=== PATIENT | female | born 1985 | race Caucasian/White ===

== ENCOUNTER 2022-03-20 12:48 | Emergency (ER) | payer OTHER, SELFPAY ==
--- NOTE | ~2022-03-20 | CT_ITS ---
EXAMINATION: CT ABDOMEN AND PELVIS WITHOUT CONTRAST CLINICAL INFORMATION: Left flank pain and dysuria COMPARISON: None TECHNIQUE: Multidetector volumetric imaging was performed from the superior aspect of the liver through the pubic symphysis. Sagittal and coronal reformatted images were obtained on the technologist's workstation. This CT examination was performed using dose optimization techniques as appropriate, variously including the following: *Automated exposure control *Adjustment of mA and/or kV according to patient size (this includes techniques or standardized protocols for targeted exams where dose is matched to indication/reason for exam; i.e. extremities or head) *Use of iterative reconstruction technique DLP: 866 mGy-cm FINDINGS: LUNG BASES: Normal. No pulmonary consolidation or pleural effusion. LIVER: The liver has normal size, shape, and attenuation. No evidence of liver mass. GALLBLADDER AND BILIARY TREE: Gallbladder is without radiopaque stones, wall thickening or pericholecystic fluid. No dilated bile ducts. PANCREAS: Normal. No edema, pancreatic ductal dilatation or mass. SPLEEN: Normal. ADRENAL GLANDS: Normal. KIDNEYS AND URETERS: Kidneys are normal in size. 0.2 cm and 0.4 cm calyceal stones of the mid left kidney. Mild left hydronephrosis and mild perinephric edema. However, there is no significant dilatation of the left ureter. BLADDER: 0.2 cm calcification of the left posterior bladder wall is in the expected region of the ureteral orifice. This is either protruding from the ureterovesical junction or represents a recently passed stone. BOWEL AND PERITONEUM: Stomach is unremarkable. No dilated loops of bowel. The appendix is normal. No overt bowel wall thickening or mesenteric fat stranding. No free fluid or pneumoperitoneum. ABDOMINAL WALL: Unremarkable. VASCULATURE: Normal. LYMPH NODES: No pathologic sized lymph nodes in the abdomen or pelvis. No inguinal lymphadenopathy. PELVIC VISCERA: Normal. No uterine or adnexal mass. No pelvic free fluid. MUSCULOSKELETAL: Moderate disc degenerative change of L4-5 and L5-S1. CT/CT abdomen pelvis wo IV con IMPRESSION: * Mild left hydronephrosis and perinephric edema secondary to a 0.2 cm stone of the left ureterovesical junction. * There are two small stones of the mid left kidney.
[2022-03-20 12:56] VITALS: BP 153/88; PULSE 83; RESP 19; TEMP 36.6; O2SAT 98; BMI 39.8
--- NOTE | 2022-03-20 12:58 | ED.ABDPAIN ---
HPI - Abdominal Pain General Chief Complaint: Urogenital-Female Stated Complaint: Kidney stone? Time Seen by Provider: 03/20/22 13:47 Related Data Previous Rx's Medication Instructions Recorded ibuprofen 800 mg tablet 800 mg PO Q6H PRN pain #30 tabs 03/20/22 nitrofurantoin 100 mg PO BID #10 caps 03/20/22 monohydrate/macrocrystals 100 mg capsule (Macrobid) oxycodone-acetaminophen 5 mg-325 1 tab PO TID PRN pain #7 tabs 03/20/22 mg tablet (Percocet) tamsulosin 0.4 mg capsule (Flomax) 0.4 mg PO DAILY #7 caps 03/20/22 Allergies Allergy/AdvReac Type Severity Reaction Status Date / Time No Known Allergies Allergy Verified 03/20/22 12:57 [facility] Social History Social History Smoked in Last 30 Days: No Advance Directives: No Advance Directives Information Provided: No Patient : No Physical Exam ED Vital Signs: Vital Signs - 24 hr 03/20/22 12:56 03/20/22 14:46 Temperature 98 F Pulse Rate 83 98 Respiratory Rate 19 16 Blood Pressure 153/88 H 126/71 Pulse Oximetry 98 98 Oxygen Delivery Method Room Air Room Air BMI result Body Mass Index 39.8 Course Course Course Narrative: LMP 13PM - 36yoF presenting to the ED c c/o of left flank pain since this morning c associated dysuria, urgency and frequency. Is on Control therefore doesn't have a menstrual period. Denies any fevers, N/V, hematuria, abnormal discharge other symptoms complaints or concerns at this time. Plan: Will obtain labs, UA, CT scan abdomen pelvis without IV contrast. Patient will be sent back to the waiting room to be evaluated in the ED. Medical Decision Making Lab Data 03/20/22 13:38 03/20/22 13:37 Labs: Lab Results 03/20/22 03/20/22 03/20/22 Range/Units 13:27 13:37 13:38 WBC 14.4 H (4.8-10.8) X10*3/uL RBC 4.01 L (4.20-5.50) X10*6/uL Hgb 12.3 (12.0-16.0) g/dl Hct 36.7 L (37.0-47.0) % MCV 91.5 (80.0-98.0) fL MCH 30.7 (27.0-33.0) pg MCHC 33.5 (31.0-35.0) g/dl RDW 12.8 (11.0-16.0) % Plt Count 259 (160-400) X10*3/uL MPV 10.5 (9.4-12.3) fL Immature Gran % (Auto) 0.3 (0.0-0.4) % Neut % (Auto) 88.9 H (45-73) % Lymph % (Auto) 7.8 L (20-40) % [place] % (Auto) 2.6 (2-11) % Eos % (Auto) 0.1 (0-4) % Baso % (Auto) 0.3 (0-2) % Lymph # (Auto) 1.1 L (1.2-4.9) X10*3/uL [place] # (Auto) 0.4 (0.1-1.2) X10*3/uL Eos # (Auto) 0.0 (0.0-0.4) X10*3/uL Baso # (Auto) 0.0 (0.0-0.2) X10*3/uL Abs Immat Gran (auto) 0.05 H (0.00-0.03) X10*3/uL Absolute Neuts (auto) 12.7 H (2.0-8.3) x10*3/uL Absolute Nucleated RBC 0.000 (0.0-0.012) X10*3/uL Nucleated RBC % (auto) 0.0 (0.0-0.2) /100WBC PT (10.0-13.1) SEC INR (0.9-1.1) Sodium 136 (135-145) mmol/L Potassium 4.6 (3.3-5.1) mmol/L Chloride 103 (96-108) mmol/L Carbon Dioxide 24 (22-29) mmol/L Anion Gap 14 (12-20) BUN 14 (9-16) mg/dL Creatinine 1.00 (0.5-1.4) mg/dL Estim Creat Clear Calc 87.8 Estimated GFR > 60 Random Glucose 113 (60-115) mg/dL Calcium 9.5 (8.4-10.2) mg/dL Magnesium 1.9 (1.6-2.6) mg/dL Total Bilirubin 0.5 (0.0-1.0) mg/dL AST 17 (5-31) U/L ALT 17 (0-31) U/L Alkaline Phosphatase 56 (39-117) U/L Total Protein 7.3 (6.5-8.0) g/dL Albumin 4.4 (3.5-5.0) g/dL Lipase 14 (8-78) U/L Beta HCG, Quant < 2 mIU/mL Urine Color Yellow Urine Appearance Cloudy Urine pH 6.0 (5.0-9.0) Ur Specific [place] >= 1.030 H (1.005-1.025) Urine Protein 30 (1+) H (Neg-Trace) mg/dL Urine Glucose (UA) Negative (Negative) mg/dL Urine Ketones Negative (Negative) mg/dL Urine Blood Large (3+) H (Negative) Urine Nitrite Negative (Negative) Ur Leukocyte Esterase Negative (Negative) Urine RBC >20 H (0-2) /HPF Urine WBC 11-20 H (0-5) /HPF Ur Squamous Epith Cells 11-20 (0-2) /HPF Other Crystals Present Urine Bacteria 1+ (None Seen) Hyaline Casts 3-5 (0-2) /LPF 03/20/22 Range/Units 13:38 WBC (4.8-10.8) X10*3/uL RBC (4.20-5.50) X10*6/uL Hgb (12.0-16.0) g/dl Hct (37.0-47.0) % MCV (80.0-98.0) fL MCH (27.0-33.0) pg MCHC (31.0-35.0) g/dl RDW (11.0-16.0) % Plt Count (160-400) X10*3/uL MPV (9.4-12.3) fL Immature Gran % (Auto) (0.0-0.4) % Neut % (Auto) (45-73) % Lymph % (Auto) (20-40) % [place] % (Auto) (2-11) % Eos % (Auto) (0-4) % Baso % (Auto) (0-2) % Lymph # (Auto) (1.2-4.9) X10*3/uL [place] # (Auto) (0.1-1.2) X10*3/uL Eos # (Auto) (0.0-0.4) X10*3/uL Baso # (Auto) (0.0-0.2) X10*3/uL Abs Immat Gran (auto) (0.00-0.03) X10*3/uL Absolute Neuts (auto) (2.0-8.3) x10*3/uL Absolute Nucleated RBC (0.0-0.012) X10*3/uL Nucleated RBC % (auto) (0.0-0.2) /100WBC PT 11.6 (10.0-13.1) SEC INR 1.0 (0.9-1.1) Sodium (135-145) mmol/L Potassium (3.3-5.1) mmol/L Chloride (96-108) mmol/L Carbon Dioxide (22-29) mmol/L Anion Gap (12-20) BUN (9-16) mg/dL Creatinine (0.5-1.4) mg/dL Estim Creat Clear Calc Estimated GFR Random Glucose (60-115) mg/dL Calcium (8.4-10.2) mg/dL Magnesium (1.6-2.6) mg/dL Total Bilirubin (0.0-1.0) mg/dL AST (5-31) U/L ALT (0-31) U/L Alkaline Phosphatase (39-117) U/L Total Protein (6.5-8.0) g/dL Albumin (3.5-5.0) g/dL Lipase (8-78) U/L Beta HCG, Quant mIU/mL Urine Color Urine Appearance Urine pH (5.0-9.0) Ur Specific [place] (1.005-1.025) Urine Protein (Neg-Trace) mg/dL Urine Glucose (UA) (Negative) mg/dL Urine Ketones (Negative) mg/dL Urine Blood (Negative) Urine Nitrite (Negative) Ur Leukocyte Esterase (Negative) Urine RBC (0-2) /HPF Urine WBC (0-5) /HPF Ur Squamous Epith Cells (0-2) /HPF Other Crystals Urine Bacteria (None Seen) Hyaline Casts (0-2) /LPF Medications Administered Discontinued Medications Generic Name Dose Route Start Last Admin Trade Name Freq PRN Reason Stop Dose Admin Sodium Chloride 1,000 mls @ 999 mls/hr 03/20/22 14:15 03/20/22 15:18 Ns IV 03/20/22 15:15 Infused .Q1H1M ROHAN Infusion Ketorolac Tromethamine 30 mg 03/20/22 14:01 03/20/22 14:16 Ketorolac Tromethamine 15 Mg/Ml Vial IVPUSH 03/20/22 14:02 30 mg ONCE ONE Administration Nitrofurantoin Macrocrystals 100 mg 03/20/22 16:40 03/20/22 16:50 Nitrofurantoin Monohyd/M-Cryst 100 Mg Capsule PO 03/20/22 16:41 100 mg ONCE ONE Administration Ondansetron HCl 4 mg 03/20/22 14:01 03/20/22 14:16 Ondansetron Hcl 4 Mg/2 Ml Vial IVPUSH 03/20/22 14:02 4 mg ONCE ONE Administration Oxycodone HCl 5 mg 03/20/22 16:40 03/20/22 16:50 Oxycodone Hcl Immed Release 5 Mg Tablet PO 03/20/22 16:41 5 mg ONCE ONE Administration Tamsulosin HCl 0.4 mg 03/20/22 16:40 03/20/22 16:50 Tamsulosin Hcl 0.4 Mg Capsule PO 03/20/22 16:41 0.4 mg ONCE ONE Administration Discharge Plan Discharge Clinical Impression: Urinary tract infection, Kidney stone Patient Disposition: Home, Self-Care Instructions: Kidney Stones (ED), Urinary Tract Infection in Women (ED) Prescriptions: New nitrofurantoin monohyd/m-cryst [Macrobid] 100 mg capsule 100 mg PO BID Qty: 10 0RF Rx Instructions: must administer with a meal/food ibuprofen 800 mg tablet 800 mg PO Q6H PRN (Reason: pain) Qty: 30 0RF tamsulosin [Flomax] 0.4 mg capsule 0.4 mg PO DAILY Qty: 7 0RF oxycodone-acetaminophen [Percocet] 5-325 mg tablet 1 tab PO TID PRN (Reason: pain) Qty: 7 0RF Rx Instructions: Partial Fill upon patient request. Interventions: ED Discharge Assessment Last Done: 03/20/22 16:58 Discharge Date/Time: 03/20/22 17:00
[2022-03-20 13:44] LABS: MANUAL DIFF FLAG NO
[2022-03-20 13:48] LABS: Appearance Urine Cloudy; Color Urine Yellow; Glucose Urine UA Negative (Negative); Leukocyte Esterase Urine Negative (Negative); Nitrite Urine Negative (Negative); Specific Gravity - Urine >= 1.030 (1.005-1.025); UMIC TRIGGER UACC YES; Urine Blood Large (3+) (Negative); Urine Ketones Negative (Negative); Urine Protein 30 (1+) mg/dL (Neg-Trace)
[2022-03-20 13:55] LABS: Basophils Percent Auto 0.3 % (0-2); Eosinophils Percent Auto 0.1 % (0-4); Hematocrit 36.7 % (37.0-47.0); Hemoglobin 12.3 g/dl (12.0-16.0); Imm Gran Abs Auto 0.05 X10*3/uL (0.00-0.03); Imm Gran Pct Auto 0.3 % (0.0-0.4); Lymphocytes Absolute Auto 1.1 X10*3/uL (1.2-4.9); Lymphocytes Percent Auto 7.8 % (20-40); Mean Corpuscular HGB Conc 33.5 g/dl (31.0-35.0); Mean Corpuscular Hemoglobin 30.7 pg (27.0-33.0); Mean Corpuscular Volume 91.5 fL (80.0-98.0); Mean Platelet Volume 10.5 fL (9.4-12.3); Monocytes Absolute Auto 0.4 X10*3/uL (0.1-1.2); Monocytes Percent Auto 2.6 % (2-11); Neutrophils Absolute Auto 12.7 x10*3/uL (2.0-8.3); Neutrophils Percent Auto 88.9 % (45-73); Platelet Count 259 X10*3/uL (160-400); Red Blood Count 4.01 X10*6/uL (4.20-5.50); Red Cell Distribution Width 12.8 % (11.0-16.0); White Blood Count 14.4 X10*3/uL (4.8-10.8)
[2022-03-20 13:57] LABS: Bacteria Urine 1+ (None Seen); Other Crystals Urine Present; RBC Urine >20 /HPF (0-2); UACC Culture Trigger YES
[2022-03-20 13:59] LABS: Prothrombin Time 11.6 SEC (10.0-13.1)
--- NOTE | 2022-03-20 14:02 | ED_ITS ---
HPI - Abdominal Pain General Chief Complaint: Urogenital-Female Stated Complaint: Kidney stone? Time Seen by Provider: 03/20/22 13:47 Source: patient and old records reviewed History of Present Illness HPI narrative: Patient complaining of left-sided abdominal pain which started this morning when she woke up. Note is left flank radiating down into her left lower abdomen. It is similar to a prior episode of a kidney stone she had in 2009. She states that 1 was scheduled for procedure to have removed but she eventually passed it on her own. Positive nausea without vomiting No diarrhea or constipation Positive urinary frequency and hesitancy. No hematuria. She was well yesterday without any symptoms. No recent changes to diet exercise medications or activity Pain at its worst was 8/10. Currently 07/10. Related Data Previous Rx's Medication Instructions Recorded ibuprofen 800 mg tablet 800 mg PO Q6H PRN pain #30 tabs 03/20/22 nitrofurantoin 100 mg PO BID #10 caps 03/20/22 monohydrate/macrocrystals 100 mg capsule (Macrobid) oxycodone-acetaminophen 5 mg-325 1 tab PO TID PRN pain #7 tabs 03/20/22 mg tablet (Percocet) tamsulosin 0.4 mg capsule (Flomax) 0.4 mg PO DAILY #7 caps 03/20/22 Allergies Allergy/AdvReac Type Severity Reaction Status Date / Time No Known Allergies Allergy Verified 03/20/22 12:57 Review of Systems Comments: No fevers or chills Comments: No chest pain Comments: No dyspnea Comments: Abdominal pain is described Comments: No midline back pain. No extremity pain Comments: No rash Comments: No focal weakness PMFSH Social History Social History Smoked in Last 30 Days: No Advance Directives: No Advance Directives Information Provided: No Patient : No Physical Exam ED Vital Signs: Vital Signs - 24 hr 03/20/22 12:56 03/20/22 14:46 Temperature 98 F Pulse Rate 83 98 Respiratory Rate 19 16 Blood Pressure 153/88 H 126/71 Pulse Oximetry 98 98 Oxygen Delivery Method Room Air Room Air BMI result Body Mass Index 39.8 Const Other: Awake alert. No acute distress Resp Other: Clear and equal bilaterally without wheezes rales or rhonchi Cardio Other: Regular rate and rhythm without murmurs rubs or gallops GI Other: Soft. Mild left abdominal tenderness without guarding or rebound. Positive left flank tenderness to percussion. Back/Spine/Pelvis Other: No midline spine tenderness. Mild left flank tenderness to percussion Skin Other: Warm pink and dry without rash Neuro Other: Neurologically intact Extrem Other: No extremity abnormalities Medical Decision Making Medical Decision Making MDM Narrative: Patient with flank pain radiating to left lower abdomen consistent with prior kidney stones. Differential diagnosis would include kidney stone, pyelonephritis, musculoskeletal pain, other intra-abdominal mass. Diverticulitis less likely but possible. Will order CT scan. IV normal saline IV Toradol IV Zofran 14:07. Workup in the emergency department shows white count 66830. Chemistries are pending at this time. Urinalysis shows large blood and 11-20 white cells. 1+ bacteria. Await remainder of workup 16:27. CT scan on my evaluation shows a left-sided UVJ renal calculus with hydronephrosis, moderate. Await Radiology reading. 16:41. CT scan confirmed by Radiology to show left-sided UVJ renal calculus with hydronephrosis, moderate. Given urinalysis results, will start on Macrobid as well. Flomax for kidney stone. Urology follow-up. Percocet for severe pain. Ibuprofen for moderate pain Lab Data 03/20/22 13:38 03/20/22 13:37 Labs: Lab Results 03/20/22 03/20/22 03/20/22 Range/Units 13:27 13:37 13:38 WBC 14.4 H (4.8-10.8) X10*3/uL RBC 4.01 L (4.20-5.50) X10*6/uL Hgb 12.3 (12.0-16.0) g/dl Hct 36.7 L (37.0-47.0) % MCV 91.5 (80.0-98.0) fL MCH 30.7 (27.0-33.0) pg MCHC 33.5 (31.0-35.0) g/dl RDW 12.8 (11.0-16.0) % Plt Count 259 (160-400) X10*3/uL MPV 10.5 (9.4-12.3) fL Immature Gran % (Auto) 0.3 (0.0-0.4) % Neut % (Auto) 88.9 H (45-73) % Lymph % (Auto) 7.8 L (20-40) % [place] % (Auto) 2.6 (2-11) % Eos % (Auto) 0.1 (0-4) % Baso % (Auto) 0.3 (0-2) % Lymph # (Auto) 1.1 L (1.2-4.9) X10*3/uL [place] # (Auto) 0.4 (0.1-1.2) X10*3/uL Eos # (Auto) 0.0 (0.0-0.4) X10*3/uL Baso # (Auto) 0.0 (0.0-0.2) X10*3/uL Abs Immat Gran (auto) 0.05 H (0.00-0.03) X10*3/uL Absolute Neuts (auto) 12.7 H (2.0-8.3) x10*3/uL Absolute Nucleated RBC 0.000 (0.0-0.012) X10*3/uL Nucleated RBC % (auto) 0.0 (0.0-0.2) /100WBC PT (10.0-13.1) SEC INR (0.9-1.1) Sodium 136 (135-145) mmol/L Potassium 4.6 (3.3-5.1) mmol/L Chloride 103 (96-108) mmol/L Carbon Dioxide 24 (22-29) mmol/L Anion Gap 14 (12-20) BUN 14 (9-16) mg/dL Creatinine 1.00 (0.5-1.4) mg/dL Estim Creat Clear Calc 87.8 Estimated GFR > 60 Random Glucose 113 (60-115) mg/dL Calcium 9.5 (8.4-10.2) mg/dL Magnesium 1.9 (1.6-2.6) mg/dL Total Bilirubin 0.5 (0.0-1.0) mg/dL AST 17 (5-31) U/L ALT 17 (0-31) U/L Alkaline Phosphatase 56 (39-117) U/L Total Protein 7.3 (6.5-8.0) g/dL Albumin 4.4 (3.5-5.0) g/dL Lipase 14 (8-78) U/L Beta HCG, Quant < 2 mIU/mL Urine Color Yellow Urine Appearance Cloudy Urine pH 6.0 (5.0-9.0) Ur Specific [place] >= 1.030 H (1.005-1.025) Urine Protein 30 (1+) H (Neg-Trace) mg/dL Urine Glucose (UA) Negative (Negative) mg/dL Urine Ketones Negative (Negative) mg/dL Urine Blood Large (3+) H (Negative) Urine Nitrite Negative (Negative) Ur Leukocyte Esterase Negative (Negative) Urine RBC >20 H (0-2) /HPF Urine WBC 11-20 H (0-5) /HPF Ur Squamous Epith Cells 11-20 (0-2) /HPF Other Crystals Present Urine Bacteria 1+ (None Seen) Hyaline Casts 3-5 (0-2) /LPF 03/20/22 Range/Units 13:38 WBC (4.8-10.8) X10*3/uL RBC (4.20-5.50) X10*6/uL Hgb (12.0-16.0) g/dl Hct (37.0-47.0) % MCV (80.0-98.0) fL MCH (27.0-33.0) pg MCHC (31.0-35.0) g/dl RDW (11.0-16.0) % Plt Count (160-400) X10*3/uL MPV (9.4-12.3) fL Immature Gran % (Auto) (0.0-0.4) % Neut % (Auto) (45-73) % Lymph % (Auto) (20-40) % [place] % (Auto) (2-11) % Eos % (Auto) (0-4) % Baso % (Auto) (0-2) % Lymph # (Auto) (1.2-4.9) X10*3/uL [place] # (Auto) (0.1-1.2) X10*3/uL Eos # (Auto) (0.0-0.4) X10*3/uL Baso # (Auto) (0.0-0.2) X10*3/uL Abs Immat Gran (auto) (0.00-0.03) X10*3/uL Absolute Neuts (auto) (2.0-8.3) x10*3/uL Absolute Nucleated RBC (0.0-0.012) X10*3/uL Nucleated RBC % (auto) (0.0-0.2) /100WBC PT 11.6 (10.0-13.1) SEC INR 1.0 (0.9-1.1) Sodium (135-145) mmol/L Potassium (3.3-5.1) mmol/L Chloride (96-108) mmol/L Carbon Dioxide (22-29) mmol/L Anion Gap (12-20) BUN (9-16) mg/dL Creatinine (0.5-1.4) mg/dL Estim Creat Clear Calc Estimated GFR Random Glucose (60-115) mg/dL Calcium (8.4-10.2) mg/dL Magnesium (1.6-2.6) mg/dL Total Bilirubin (0.0-1.0) mg/dL AST (5-31) U/L ALT (0-31) U/L Alkaline Phosphatase (39-117) U/L Total Protein (6.5-8.0) g/dL Albumin (3.5-5.0) g/dL Lipase (8-78) U/L Beta HCG, Quant mIU/mL Urine Color Urine Appearance Urine pH (5.0-9.0) Ur Specific [place] (1.005-1.025) Urine Protein (Neg-Trace) mg/dL Urine Glucose (UA) (Negative) mg/dL Urine Ketones (Negative) mg/dL Urine Blood (Negative) Urine Nitrite (Negative) Ur Leukocyte Esterase (Negative) Urine RBC (0-2) /HPF Urine WBC (0-5) /HPF Ur Squamous Epith Cells (0-2) /HPF Other Crystals Urine Bacteria (None Seen) Hyaline Casts (0-2) /LPF Medications Administered Discontinued Medications Generic Name Dose Route Start Last Admin Trade Name Freq PRN Reason Stop Dose Admin Sodium Chloride 1,000 mls @ 999 mls/hr 03/20/22 14:15 03/20/22 15:18 Ns IV 03/20/22 15:15 Infused .Q1H1M ROHAN Infusion Ketorolac Tromethamine 30 mg 03/20/22 14:01 03/20/22 14:16 Ketorolac Tromethamine 15 Mg/Ml Vial IVPUSH 03/20/22 14:02 30 mg ONCE ONE Administration Ondansetron HCl 4 mg 03/20/22 14:01 03/20/22 14:16 Ondansetron Hcl 4 Mg/2 Ml Vial IVPUSH 03/20/22 14:02 4 mg ONCE ONE Administration Discharge Plan Discharge Clinical Impression: Urinary tract infection, Kidney stone Patient Disposition: Home, Self-Care Instructions: Kidney Stones (ED), Urinary Tract Infection in Women (ED) Prescriptions: New nitrofurantoin monohyd/m-cryst [Macrobid] 100 mg capsule 100 mg PO BID Qty: 10 0RF Rx Instructions: must administer with a meal/food ibuprofen 800 mg tablet 800 mg PO Q6H PRN (Reason: pain) Qty: 30 0RF tamsulosin [Flomax] 0.4 mg capsule 0.4 mg PO DAILY Qty: 7 0RF oxycodone-acetaminophen [Percocet] 5-325 mg tablet 1 tab PO TID PRN (Reason: pain) Qty: 7 0RF Rx Instructions: Partial Fill upon patient request.
[2022-03-20 14:16] LABS: Alanine Aminotransferase 17 U/L (0-31); Albumin Level 4.4 g/dL (3.5-5.0); Alkaline Phosphatase 56 U/L (39-117); Anion Gap 14 (12-20); Aspartate Amino Transferase 17 U/L (5-31); Bilirubin Total 0.5 mg/dL (0.0-1.0); Blood Urea Nitrogen 14 mg/dL (9-16); Calcium 9.5 mg/dL (8.4-10.2); Carbon Dioxide 24 mmol/L (22-29); Chloride 103 mmol/L (96-108); Creatinine Clr Calc Pharmacy 87.8; Estimated Glomerular Filt Rate > 60; Glucose Random 113 mg/dL (60-115); Lipase 14 U/L (8-78); Magnesium 1.9 mg/dL (1.6-2.6); Potassium 4.6 mmol/L (3.3-5.1); Sodium 136 mmol/L (135-145); Total Protein 7.3 g/dL (6.5-8.0)
[2022-03-20] MEDS: Ketorolac Tromethamine 15 MG/ML VIAL 30 MG IVPUSH (14:16)
[2022-03-20] MEDS: ondansetron HCL 4 MG/2 ML VIAL IVPUSH (14:16)
[2022-03-20] MEDS: 0.9 % Sodium Chloride 1,000 ML 999 ML IV (14:17)
[2022-03-20 14:22] LABS: HCG Quantitative < 2 mIU/mL
[2022-03-20 14:46] VITALS: BP 126/71; PULSE 98; RESP 16; O2SAT 98
[2022-03-20] MEDS: Nitrofurantoin Monohyd/M-Cryst 100 MG CAPSULE PO (16:50)
[2022-03-20] MEDS: Tamsulosin HCL 0.4 MG CAPSULE PO (16:50)
[2022-03-20] MEDS: oxyCODONE HCl Immed Release 5 MG TABLET PO (16:50)
== END 2022-03-20 17:00 | disposition home or self-care (01) ==
PROVIDERS: Physician Assistant Medical; Emergency Provider Emergency Medicine; PCP Internal Medicine Hematology & Oncology
DX: N39.0 Urinary tract infection, site not specified (principal); N13.2 Hydronephrosis with renal and ureteral calculous obstruction; R10.9 Unspecified abdominal pain; R10.32 Left lower quadrant pain
CPT/HCPCS: 36415; 74176; 80053; 81001; 83690; 83735; 84702; 85025; 85610; 87086; 96361; 96374; 96375; 99284; 99285; J1885; J2405

== ENCOUNTER 2022-10-29 12:55 | Emergency (ER) | payer OTHER, SELFPAY ==
--- NOTE | ~2022-10-29 | CT_ITS ---
EXAMINATION: CT ABDOMEN AND PELVIS WITHOUT CONTRAST CLINICAL INFORMATION: Left flank pain COMPARISON: CT abdomen and pelvis 03/20/2022 TECHNIQUE: Multidetector volumetric imaging was performed from the superior aspect of the liver through the pubic symphysis. Sagittal and coronal reformatted images were obtained on the technologist's workstation. This CT examination was performed using dose optimization techniques as appropriate, variously including the following: *Automated exposure control *Adjustment of mA and/or kV according to patient size (this includes techniques or standardized protocols for targeted exams where dose is matched to indication/reason for exam; i.e. extremities or head) *Use of iterative reconstruction technique DLP: 633 mGy-cm FINDINGS: LUNG BASES: The visualized lung bases are unremarkable. LIVER, GALLBLADDER, AND BILIARY TREE: The liver is normal in size, shape, and attenuation. No focal hepatic lesion or biliary ductal dilatation is present. The gallbladder is unremarkable with no evidence of radiopaque gallstones, gallbladder wall thickening, or obvious pericholecystic inflammatory changes. PANCREAS: Unremarkable. SPLEEN: Unremarkable. ADRENAL GLANDS: Unremarkable. KIDNEYS AND URETERS: The kidneys are normal in size, shape, and attenuation. There are 2 mm radiopaque two calculi in midpole left kidney and 2 mm radiopaque calculi in mid and lower pole right kidney. A 4 mm radiopaque obstructive calculi seen in left distal ureter with mild hydroureteronephrosis. It is best visualized on axial image 76/3. There is a phlebolith in the left adnexa. There is no right-sided hydronephrosis BLADDER: Unremarkable. GASTROINTESTINAL TRACT: There is scattered stool and gas in colon without distention. The small bowel loops are normal caliber. Appendix is normal caliber. ABDOMINAL WALL: No significant hernia is appreciated. LYMPH NODES: There is 8 mm lymph node in the right medial cecal mesentery and small shotty lymph nodes in the retroperitoneum, nonspecific. VASCULAR: Unremarkable. PELVIC VISCERA: Uterus is anteverted and unremarkable. No free fluid seen. No abnormal pelvic lymph nodes. OSSEOUS STRUCTURES: There are mild degenerative disc changes at L4-L5 and L5-S1 disc levels. CT/CT abdomen pelvis wo IV con IMPRESSION: Bilateral nephrolithiasis. 4 mm obstructive radiopaque stone distal left ureter. With mild hydroureter and hydronephrosis Fleischner guidelines were followed.
--- NOTE | 2022-10-29 13:05 | ED_ITS ---
HPI - General Adult General Chief complaint: Abdominal Pain Stated complaint: Lower L abd pain Time Seen by Provider: 10/29/22 13:54 Source: patient Mode of arrival: ambulatory History of Present Illness HPI narrative: 37-year-old female with a history of renal colic presents with onset left flank pain that started this more with associated nausea and chills but denies any vomiting or fevers. She reports corresponding dysuria. Related Data Previous Rx's Medication Instructions Recorded ibuprofen 800 mg tablet 800 mg PO Q6H PRN pain #30 tabs 03/20/22 nitrofurantoin 100 mg PO BID #10 caps 03/20/22 monohydrate/macrocrystals 100 mg capsule (Macrobid) oxycodone-acetaminophen 5 mg-325 1 tab PO TID PRN pain #7 tabs 03/20/22 mg tablet (Percocet) tamsulosin 0.4 mg capsule (Flomax) 0.4 mg PO DAILY #7 caps 03/20/22 ketorolac 10 mg tablet 10 mg PO Q6H PRN pain 5 days #20 10/29/22 tabs prednisone 20 mg tablet 20 mg PO DAILY #4 tabs 10/29/22 tamsulosin 0.4 mg capsule 0.4 mg PO BEDTIME #4 caps 10/29/22 Allergies Allergy/AdvReac Type Severity Reaction Status Date / Time No Known Allergies Allergy Verified 03/20/22 12:57 Review of Systems Review of Systems: Pertinent positives and negatives as stated in [facility] Past Medical History Source: nursing notes reviewed Social History Social History Advance Directives: No Advance Directives Information Provided: No Patient : No Physical Exam ED Vital Signs: Vital Signs - 24 hr 10/29/22 13:06 10/29/22 15:15 Temperature 98.0 F Pulse Rate 78 77 Respiratory Rate 20 16 Blood Pressure 136/82 116/67 Pulse Oximetry 100 100 Oxygen Delivery Method Room Air Room Air BMI result Body Mass Index 32.6 VITAL SIGNS: Reviewed. GENERAL: Well developed, well nourished, in moderate distress. HEAD: Normocephalic/atraumatic EYES: PERRLA, EOMI EARS: Ext canals without abnormality NOSE: Nares patent bilateral OROPHARYNX: no oral lesions noted, posterior pharynx clear NECK: Supple, no adenopathy LUNGS: Normal breath sounds. No adventitious sounds or accessory muscle use. SpO2<100> CARDIOVASCULAR: Regular rate and rhythm without noted murmurs ABDOMEN: Soft, non-tender, non-distended with bowel sounds, no CVA tenderness. MUSCULOSKELETAL: No tenderness, deformities, or effusions noted on gross inspection. EXTREMITIES: No cyanosis, clubbing or edema. SKIN: Inspection of the skin reveals no rashes NEUROLOGIC: Alert and oriented x 4. Strength and sensation to light touch were grossly intact x 4. Course Course Course Narrative: This is a rapid medical exam: Additional HPI, ROS, PE not included below will be deferred to primary provider. Patient is a 37-year-old female with history of kidney stones, endometriosis presenting to the emergency department with complaint of left lower quadrant abdominal pain since 10 am today. States pain was bearable initially, has worsened since. Currently 6/10. Reports urinary urgency, but only going small amounts, left flank pain. Also complains of hot flashes. Plan: UA, labs Medications Administered Discontinued Medications Generic Name Dose Route Start Last Admin Trade Name Freq PRN Reason Stop Dose Admin Sodium Chloride 1,000 mls @ 999 mls/hr 10/29/22 14:15 10/29/22 14:25 Ns IV 10/29/22 15:15 999 mls/hr .Q1H1M ROHAN Administration Ketorolac Tromethamine 15 mg 10/29/22 14:12 10/29/22 14:25 Ketorolac Tromethamine 30 Mg/Ml Vial IVPUSH 10/29/22 14:13 15 mg ONCE ONE Administration Ondansetron HCl 4 mg 10/29/22 14:27 10/29/22 14:30 Ondansetron Hcl 4 Mg/2 Ml Vial IVPUSH 10/29/22 14:28 4 mg ONCE ONE Administration Medical Decision Making Medical Decision Making MDM Narrative: 37-year-old female with history and clinical presentation, DDX: Renal colic, pyelonephritis, UTI, low clinical suspicion for ectopic/diverticulitis. IV fluids, labs, Zofran, ketorolac I reviewed all investigations, hematologic indices to not demonstrate any leukocytosis but there is a mild left shift likely stress-induced otherwise no anemia or thrombocytopenia. Chemistry indices negative for CHEKO or electrolytes/liver enzyme abnormalities, beta hCG is undetectable. CT scan demonstrates a distal stone with mild hydro and otherwise my interpretation is in agreement with radiology's impression. There is no corresponding finding leukocytosis or CHEKO and if patient's pain is well controlled will discharge home with follow-up to Urology. 1543: On re-evaluation patient reports that her pain has improved, she is no longer nauseous and she will follow-up at the [facility]. She understands she will go home with the requisite kidney stone cocktail and she is otherwise hemodynamically stable for discharge. Differential Diagnosis Differential Diagnoses: The differential diagnosis associated with the presentation includes Please see the discussion above Admission/Observation Consideration of admission/observation: Escalation of care including admission/observation considered Please see the discussion above Lab Data MDM Lab Attestation statement: I reviewed the patient's lab results. Please see the discussion above 10/29/22 14:19 10/29/22 14:19 Labs: Lab Results 10/29/22 10/29/22 10/29/22 Range/Units 14:19 14:19 14:20 WBC 10.4 (4.8-10.8) X10*3/uL RBC 4.10 L (4.20-5.50) X10*6/uL Hgb 12.5 (12.0-16.0) g/dl Hct 37.8 (37.0-47.0) % MCV 92.2 (80.0-98.0) fL MCH 30.5 (27.0-33.0) pg MCHC 33.1 (31.0-35.0) g/dl RDW 12.5 (11.0-16.0) % Plt Count 215 (160-400) X10*3/uL MPV 11.7 (9.4-12.3) fL Immature Gran % (Auto) 0.5 H (0.0-0.4) % Neut % (Auto) 78.9 H (45-73) % Lymph % (Auto) 14.9 L (20-40) % [place] % (Auto) 3.9 (2-11) % Eos % (Auto) 1.3 (0-4) % Baso % (Auto) 0.5 (0-2) % Lymph # (Auto) 1.5 (1.2-4.9) X10*3/uL [place] # (Auto) 0.4 (0.1-1.2) X10*3/uL Eos # (Auto) 0.1 (0.0-0.4) X10*3/uL Baso # (Auto) 0.1 (0.0-0.2) X10*3/uL Abs Immat Gran (auto) 0.05 H (0.00-0.03) X10*3/uL Absolute Neuts (auto) 8.2 (2.0-8.3) x10*3/uL Absolute Nucleated RBC 0.000 (0.0-0.012) X10*3/uL Nucleated RBC % (auto) 0.0 (0.0-0.2) /100WBC Sodium 138 (135-145) mmol/L Potassium 3.7 (3.3-5.1) mmol/L Chloride 106 (96-108) mmol/L Carbon Dioxide 25 (22-29) mmol/L Anion Gap 11 L (12-20) BUN 9 (9-16) mg/dL Creatinine 0.85 (0.5-1.4) mg/dL Estim Creat Clear Calc 95.3 Estimated GFR > 60 Random Glucose 119 H (60-115) mg/dL Calcium 9.8 (8.4-10.2) mg/dL Total Bilirubin 0.5 (0.0-1.0) mg/dL AST 20 (5-31) U/L ALT 23 (0-31) U/L Alkaline Phosphatase 52 (39-117) U/L Total Protein 7.2 (6.5-8.0) g/dL Albumin 4.3 (3.5-5.0) g/dL Beta HCG, Quant < 2 mIU/mL Urine Test NEGATIVE (NEGATIVE) Radiology Impression Radiologist Impression: Please see the discussion above External Record Review External record reviewed: Outpatient record, Prior outpatient labs and Prior outpatient radiology Critical Care Time Critical Care Time Critical Care Time: Yes Total Critical Care Time: 30 Attestation: I personally attest to this time spent taking care of the patient. Discharge Plan Discharge Clinical Impression: Renal colic, Ureterolithiasis, Hydronephrosis Patient Disposition: Home, Self-Care Instructions: Renal Colic (ED), Low Oxalate Diet (ED), Hydronephrosis (ED), Ureteral Stones (ED) Additional Instructions: 1. Resume all home medications as prescribed. 2. Tylenol 1000 mg, orally, every 6 hours as needed for pain control. Do not exceed 4000 mg within 24 hours. 3. Please follow-up with [facility]ist 1st thing in the morning please review the impression located below from the CT scan. CT/CT abdomen pelvis wo IV con IMPRESSION: Bilateral nephrolithiasis. 4 mm obstructive radiopaque stone distal left ureter. With mild hydroureter and hydronephrosis Return to the ER for any worsening symptoms. Prescriptions: New ketorolac 10 mg tablet 10 mg PO Q6H PRN (Reason: pain) 5 Days Qty: 20 0RF Rx Instructions: Patient received Toradol in the emergency room tamsulosin 0.4 mg capsule 0.4 mg PO BEDTIME Qty: 4 0RF prednisone 20 mg tablet 20 mg PO DAILY Qty: 4 0RF No Action nitrofurantoin monohyd/m-cryst [Macrobid] 100 mg capsule 100 mg PO BID Qty: 10 0RF Rx Instructions: must administer with a meal/food ibuprofen 800 mg tablet 800 mg PO Q6H PRN (Reason: pain) Qty: 30 0RF tamsulosin [Flomax] 0.4 mg capsule 0.4 mg PO DAILY Qty: 7 0RF oxycodone-acetaminophen [Percocet] 5-325 mg tablet 1 tab PO TID PRN (Reason: pain) Qty: 7 0RF Rx Instructions: Partial Fill upon patient request. Referrals: Chante Chowdhury MD [Primary Care Provider] -
[2022-10-29 13:06] VITALS: BP 136/82; PULSE 78; RESP 20; TEMP 36.7; O2SAT 100; BMI 32.6
[2022-10-29 14:25] LABS: MANUAL DIFF FLAG NO
[2022-10-29] MEDS: Ketorolac Tromethamine 30 MG/ML VIAL 15 MG IVPUSH (14:25)
[2022-10-29] MEDS: 0.9 % Sodium Chloride 1,000 ML 999 ML IV (14:25)
[2022-10-29 14:27] LABS: UPreg QC Valid YES; Urine Pregnancy NEGATIVE (NEGATIVE)
[2022-10-29] MEDS: ondansetron HCL 4 MG/2 ML VIAL IVPUSH (14:30)
[2022-10-29 14:34] LABS: Basophils Absolute Auto 0.1 X10*3/uL (0.0-0.2); Basophils Percent Auto 0.5 % (0-2); Eosinophils Absolute Auto 0.1 X10*3/uL (0.0-0.4); Eosinophils Percent Auto 1.3 % (0-4); Hematocrit 37.8 % (37.0-47.0); Hemoglobin 12.5 g/dl (12.0-16.0); Imm Gran Abs Auto 0.05 X10*3/uL (0.00-0.03); Imm Gran Pct Auto 0.5 % (0.0-0.4); Lymphocytes Absolute Auto 1.5 X10*3/uL (1.2-4.9); Lymphocytes Percent Auto 14.9 % (20-40); Mean Corpuscular HGB Conc 33.1 g/dl (31.0-35.0); Mean Corpuscular Hemoglobin 30.5 pg (27.0-33.0); Mean Corpuscular Volume 92.2 fL (80.0-98.0); Mean Platelet Volume 11.7 fL (9.4-12.3); Monocytes Absolute Auto 0.4 X10*3/uL (0.1-1.2); Monocytes Percent Auto 3.9 % (2-11); Neutrophils Absolute Auto 8.2 x10*3/uL (2.0-8.3); Neutrophils Percent Auto 78.9 % (45-73); Platelet Count 215 X10*3/uL (160-400); Red Cell Distribution Width 12.5 % (11.0-16.0); White Blood Count 10.4 X10*3/uL (4.8-10.8)
[2022-10-29 14:48] LABS: Alanine Aminotransferase 23 U/L (0-31); Albumin Level 4.3 g/dL (3.5-5.0); Alkaline Phosphatase 52 U/L (39-117); Anion Gap 11 (12-20); Aspartate Amino Transferase 20 U/L (5-31); Bilirubin Total 0.5 mg/dL (0.0-1.0); Blood Urea Nitrogen 9 mg/dL (9-16); Calcium 9.8 mg/dL (8.4-10.2); Carbon Dioxide 25 mmol/L (22-29); Chloride 106 mmol/L (96-108); Creatinine Clr Calc Pharmacy 95.3; Estimated Glomerular Filt Rate > 60; Glucose Random 119 mg/dL (60-115); HCG Quantitative < 2 mIU/mL; Potassium 3.7 mmol/L (3.3-5.1); Sodium 138 mmol/L (135-145); Total Protein 7.2 g/dL (6.5-8.0)
--- NOTE | 2022-10-29 14:58 | PC.NURSE ---
iv established, labs drawn and sent. pt reports her pain has gone from 7 down to 4 after pain medications. one episode of vomiting in room, feeling better after zofran and vomiting. awaiting ct scan at this time. call valerio within reach.
[2022-10-29 15:15] VITALS: BP 116/67; PULSE 77; RESP 16; O2SAT 100
[2022-10-29 16:24] LABS: Appearance Urine Turbid; Color Urine Yellow; Glucose Urine UA Negative (Negative); Leukocyte Esterase Urine Trace (Negative); Nitrite Urine Negative (Negative); Specific Gravity - Urine >= 1.030 (1.005-1.025); UMIC TRIGGER UACC YES; Urine Blood Moderate (2+) (Negative); Urine Ketones 40 mg/dL (Negative); Urine Protein Trace mg/dL (Neg-Trace)
[2022-10-29 16:27] LABS: Bacteria Urine Trace (None Seen); RBC Urine >20 /HPF (0-2); WBC Urine 0-5 /HPF (0-5)
== END 2022-10-29 17:02 | disposition home or self-care (01) ==
PROVIDERS: Registered Nurse Emergency; Emergency Provider Student in an Organized Health Care Education/Training Program; PCP Internal Medicine Hematology & Oncology
DX: N13.2 Hydronephrosis with renal and ureteral calculous obstruction (principal); N23 Unspecified renal colic; R30.0 Dysuria; Z79.899 Other long term (current) drug therapy
CPT/HCPCS: 36415; 74176; 80053; 81001; 81025; 84702; 85025; 96374; 96375; 99284; 99285; J1885; J2405

== ENCOUNTER 2022-11-05 14:17 | Outpatient (AMB) | payer OTHER, SELFPAY ==
--- NOTE | 2022-11-05 14:22 | MHC.OFFVIS ---
Intake Intake Visit Reasons: Kidney stone Intake Note: NEW Patient presents today to established treatment for Kidney Stones: Meds- Tamsulosin Tem Allergies to Antibiotic- No Known Allergies Blood Thinner- None Rn Utilization Management Um Required: No Accompanied by: Self / Same As Patient Allergies Penicillins Allergy (Mild, Verified 11/05/22 14:22) Unknown Medication List - Last Reconciled 11/05/22 by Kulwinder Mondragon MD bupropion HCl 150 mg PO QAM etonogestrel (Nexplanon) subdermal folic acid 1 mg PO DAILY gabapentin 300 mg PO BEDTIME ibuprofen 800 mg PO Q6H PRN ketorolac 10 mg PO Q6H PRN 5 days tamsulosin 0.4 mg PO DAILY 14 days HPI HPI Comments History of Present Illness Details Enedelia is a 37-year-old female who presents today as a new patient evaluation for kidney stones. The patient was seen in the emergency room for flank pain on 10/29/2022. She was also seen in the ED in March 2022 for renal colic. She states that her 1st episode of having a kidney stone was in 2009, at that time [facility]. The patient is a , served in the in the [employer], in the past. She states that she feels that she passed a kidney stone over the weekend. She is currently asymptomatic. I reviewed CT scan imaging: Small bilateral kidney stones about 2 mm. A 4 mm obstructing left distal ureteral stone with mild hydro. Evaluation this is a negative Plan: discussed 24 hour urine collection Prescription for Flomax for p.r.n. Follow-up in 3 months to review 24 hour urine Diet sheet provided be to reduce kidney stone risk. [facility] Medical History (Updated 11/05/22 @ 16:00 by Kulwinder Mondragon MD) ADHD (attention deficit hyperactivity disorder), inattentive type Binge eating disorder Endometriosis of the uterus, unspecified Excessive menses Generalized anxiety disorder Headache Left renal stone Obesity, unspecified Other intervertebral disc degeneration, lumbosacral region Post-traumatic stress disorder, chronic Prediabetes Review of Systems Const All systems reviewed & are unremarkable except as noted in HPI and below Reports no additional complaints Eyes Reports no additional complaints ENT Reports no additional complaints Card Denies dyspnea Resp Denies cough and Denies dyspnea GI Reports no additional complaints Reports no additional complaints Musc Reports no additional complaints Skin/Breast Denies rash and Denies unusual bruising Neuro Reports no additional complaints Psych Reports no additional complaints Endo Reports no additional complaints Abdiaziz/Lymph Reports no additional complaints Aller/Immun Reports no additional complaints Physical Exam Const General: cooperative, healthy appearing and no acute distress Orientation/consciousness: patient oriented x3 HEENT Head: Yes normal to inspection, Yes normocephalic and Yes atraumatic Eyes Conjunctivae: conjunctivae normal Neck Neck: Yes normal visual inspection and Yes trachea midline Chest Chest palpation & inspection: normal inspection of the chest Resp Effort & Inspection: normal respiratory effort Cardio Rate: regular rate GI Inspection: Yes normal to inspection Skin General skin exam: no rashes or lesions noted Neuro General: patient oriented x3 Extrem General: No edema Psych Appearance: grossly normal Results AMB Urinalysis, Automated UA Leukoctes 0 Brandy/uL Last Edit by Tracy Gonzalez Nash on 11/05/22 14:36 UA Nitrite Negative Last Edit by Tracy Gonzalez [facility] on 11/05/22 14:36 UA Urobilinogen 0.2 mg/dL Last Edit by Tracy Gonzalez [facility] on 11/05/22 14:36 UA Protein 0 mg/dL Last Edit by Tracy Gonzalez [facility] on 11/05/22 14:36 UA pH 7.0 Last Edit by Tracy Gonzalez [facility] on 11/05/22 14:36 UA Blood 0 Dejan/uL Last Edit by Tracy Gonzalez Nash on 11/05/22 14:36 UA Specific [place] 1.010 Last Edit by Tracy Gonzalez Nash on 11/05/22 14:36 UA Ketone Negative Last Edit by Tracy Gonzalez [facility] on 11/05/22 14:36 UA Bilirubin 0 mg/dL Last Edit by Tracy Gonzalez [facility] on 11/05/22 14:36 UA Glucose 0 mg/dL Last Edit by Tracy Gonzalez [facility] on 11/05/22 14:36 Results Reviewed Results Reviewed: Laboratory Last Values Urine pH (Auto) 7.0 11/05/22 14:23 Specific [place] (Auto) 1.010 11/05/22 14:23 Urine Protein (Auto) 0 mg/dL 11/05/22 14:23 Glucose (UA)(Auto) 0 mg/dL 11/05/22 14:23 Urine Ketones (Auto) Negative 11/05/22 14:23 Urine Blood (Auto) 0 Dejan/uL 11/05/22 14:23 Urine Nitrite (Auto) Negative 11/05/22 14:23 Urine Bilirubin (Auto) 0 mg/dL 11/05/22 14:23 Urine Urobilinogen (Auto) 0.2 mg/dL 11/05/22 14:23 Leukocyte Esterase (Auto) 0 Brandy/uL 11/05/22 14:23 Date of Service: 10/29/22 EXAMINATION: CT ABDOMEN AND PELVIS WITHOUT CONTRAST? CLINICAL INFORMATION: Left flank pain? COMPARISON: CT abdomen and pelvis 03/20/2022 TECHNIQUE: Multidetector volumetric imaging was performed from the superior aspect of the liver through the pubic symphysis. Sagittal and coronal reformatted images were obtained on the technologist's workstation.? This CT examination was performed using dose optimization techniques as appropriate, variously including the following: *Automated exposure control *Adjustment of mA and/or kV according to patient size (this includes techniques or standardized protocols for targeted exams where dose is matched to indication/reason for exam; i.e. extremities or head) *Use of iterative reconstruction technique DLP: 633 mGy-cm FINDINGS: LUNG BASES: The visualized lung bases are unremarkable.? LIVER, GALLBLADDER, AND BILIARY TREE: The liver is normal in size, shape, and attenuation. No focal hepatic lesion or biliary ductal dilatation is present. The gallbladder is unremarkable with no evidence of radiopaque gallstones, gallbladder wall thickening, or obvious pericholecystic inflammatory changes.? PANCREAS: Unremarkable.? SPLEEN: Unremarkable.? ADRENAL GLANDS: Unremarkable.? KIDNEYS AND URETERS: The kidneys are normal in size, shape, and attenuation. There are 2 mm radiopaque two calculi? in midpole left kidney and 2 mm radiopaque calculi in mid and lower pole right kidney. A 4 mm radiopaque obstructive calculi seen in left distal ureter with mild hydroureteronephrosis. It is best visualized on axial image 76/3. There is a phlebolith in the left adnexa. There is no right-sided hydronephrosis BLADDER: Unremarkable.? GASTROINTESTINAL TRACT: There is scattered stool and gas in colon without distention. The small bowel loops are normal caliber. Appendix is normal caliber.? ABDOMINAL WALL: No significant hernia is appreciated.? LYMPH NODES: There is 8 mm lymph node in the right medial cecal mesentery and small shotty lymph nodes in the retroperitoneum, nonspecific. VASCULAR: Unremarkable. PELVIC VISCERA: Uterus is anteverted and unremarkable. No free fluid seen. No abnormal pelvic lymph nodes.? OSSEOUS STRUCTURES: There are mild degenerative disc changes at L4-L5 and L5-S1 disc levels. IMPRESSION: Bilateral nephrolithiasis. 4 mm obstructive radiopaque stone distal left ureter. With mild hydroureter and hydronephrosis Assessment & Plan Assessment & Plan (1) Bilateral kidney stones: Code(s): N20.0 - Calculus of kidney (2) Left ureteral stone: Code(s): N20.1 - Calculus of ureter (3) Hydronephrosis: Code(s): N13.30 - Unspecified hydronephrosis Plan Plan: discussed 24 hour urine collection Prescription for Flomax for p.r.n. Follow-up in 3 months to review 24 hour urine Diet sheet provided be to reduce kidney stone risk. Orders: Orders AMB Urinalysis Automated Today Z13.9 - Encounter for screening, unspecified Medications: New tamsulosin 0.4 mg PO DAILY 14 days 14 caps 0RF Patient Instructions: The patient had an opportunity to ask questions regarding treatment plan. All questions were answered. Imaging, Laboratory studies and physical exam results were discussed and reviewed in detail. No major barriers to understanding were identified. The patient expressed understanding and agreement with the above treatment plan. The patient is aware they should contact our office by phone for worsening of their current condition or the appearance of new symptoms. Compliance is encouraged with any medications and followup testing that is ordered. It is a privilege to be allowed the opportunity to participate in the urologic care of your patient. If you have any questions or concerns regarding treatment for the above conditions please do not hesitate to contact me. The office telephone contact is [phone]. This note is constructed in part using voice recognition software. While every effort has been made to ensure accuracy national service officer errors may have been included. Yours sincerely, Kulwinder Mondragon MD Coding Level of Care Code New Pt Level 4 (11479) Diagnoses Bilateral kidney stones N20.0 Left ureteral stone N20.1 Hydronephrosis N13.30
== END 2022-11-05 14:58 | disposition home or self-care (01) ==
PROVIDERS: PCP Internal Medicine Hematology & Oncology; Visit Provider Urology
DX: N20.0 Calculus of kidney (principal); N20.1 Calculus of ureter; N13.30 Unspecified hydronephrosis; Z13.9 Encounter for screening, unspecified
CPT/HCPCS: 99204

== ENCOUNTER → 2022-11-05 14:17 | Outpatient (BNVA) | payer OTHER, SELFPAY | PROVIDERS: PCP Internal Medicine Hematology & Oncology; Visit Provider Urology | DX: N13.2 Hydronephrosis with renal and ureteral calculous obstruction (principal) | CPT/HCPCS: 81003; 99202 ==